=== PATIENT | female | born 1950 | race Caucasian/White ===

== ENCOUNTER 2016-10-19 00:49 | Emergency (ER) | payer MEDICARE ==
[2016-10-19 00:59] VITALS: BP 127/58
--- NOTE | 2016-10-19 01:17 | ERNOTE ---
Medical Problem HPI - Narrative Date of Service: 10/19/16 - General Chief Complaint: General Assessment Time Seen by Provider: 10/19/16 00:58 - Immun/Allergies/Home Medications Immunizations: IMMUNIZATION HX Immunizations Up to Date Yes History of Influenza Vaccine No Hx Pneumococcal Vaccination No Allergies/Adverse Reactions: Allergies No Known Allergies Allergy (Unverified 10/19/16 01:00) Home Medications: HOME MEDICATIONS Acetaminophen/Diphenhydramine [Tylenol Pm Ex-Strength Caplet] 1 tab PO PRN PRN 10/19/16 [Last Taken Unknown] rOPINIRole HCL [Requip] 4 mg PO HS 10/19/16 [Last Taken Unknown] - History of Present History Narrative: This is a 66-year-old female who comes to the emergency department with symptoms of restless leg syndrome. She takes ropinirole and all for this. She is actually taking double the dose this evening. The patient apparently lives [place] hours away but is staying in [facility]. She says she is driving back home tomorrow. She says she has uncomfortable sensation, she describes it as pain, and both legs. She can't sit still. She feels like she has to get up and move around. The patient denies any recent trauma. She has had symptoms like this in the past with restless leg syndrome and says that they gave her a cortisone shot and that this seemed to help. Review of Systems - Review of Systems Constitutional: Present: no symptoms reported EYE: Present: no symptoms reported ENT: Present: no symptoms reported Respiratory: Present: no symptoms reported Cardiology: Present: no symptoms reported Gastrointestinal/Abdominal: Present: no symptoms reported Genitourinary: Present: no symptoms reported Musculoskeletal: Present: other - crampy restless feeling Skin: Present: no symptoms reported Neurological: Present: no symptoms reported Endocrine: Present: no symptoms reported - Patient's Past Medical History Patient History - Medical: Other Patient History - Cardiac/Respiratory: No pertinent hx Patient History - Cancer: No Hx of Cancer Patient History - Other: None - Family History Mother Family History - Medical: Family History - Cardiac/Respiratory: Myocardial Infarction - Social History Living Situations: home Abuse History: No History of abuse Psych History: Hx of Anxiety, Hx of Depression Smoking Status: Never smoker Have you smoked in the past 12 months: No Do you dip or chew tobacco: No Alcohol Use: none Drug Use: none - Immunizations Immunizations Up to Date: Yes Hx Pneumococcal Vaccination: No History of Influenza Vaccine: No Physical Exam - Physical Exam General Appearance: Present: wd/wn, alert, no apparent distress Head Exam: Present: normal inspection, no evidence of injury Eye Exam: Normal inspection: bilateral, PERRL: bilateral, EOMI: bilateral ED Progress - Vital Signs Vital Signs: Vital Signs 10/19/16 00:53 Temperature 36.5 C Pulse Rate 73 Respiratory 20 Rate Blood Pressure 127/58 O2 Sat by Pulse 96 Oximetry - Progress/Reassessment Chief Complaint: General Assessment Plan - Plan Plan: Went in to talk to the patient and asked her what they usually do for her when she has something like this. She says they give her a shot of cortisone in the legs. I asked the patient if she had some difficulty, [facility] She says no she doesn't want anyone to do that. I told the patient that I wanted to give her a shot of some medicine which would help her feel better, but that she would not be okay to drive after taking that. The patient became very frustrated, she had argument up pacing around in the room, and walked out. She did not sign any AGAINST MEDICAL ADVICE form. She simply walked out. I understand people with restless leg syndrome have a internal feeling of restlessness, akathisia. I do not have any medical reason to administer cortisone. I do not even know what the correct dose of one of the Minearalocorticoids would be for her. I have had good luck in the past treating similar symptoms with low doses of fentanyl. This would require her however to have a ride. I attempted to explain this to the patient however she was so frustrated that she did not want to wait and hear anything. The patient did not complete assessment. I did not even get a complete physical exam. Departure - Departure Clinical Impression: Restless leg syndrome
[2016-10-19] MEDS ORDERED: ALBUTEROL SULFATE/IPRATROPIUM 3 ML NEBU IH ONE (01:28)
== END 2016-10-19 01:15 | disposition left against medical advice (07) ==
LOC: ER 00:49
DX: G25.81 Restless legs syndrome (principal); Z53.29 Procedure and treatment not carried out because of patient's decision for other reasons